=== PATIENT | female | born 1965 | race Caucasian/White ===

== ENCOUNTER 2020-03-12 20:04 | Emergency (ER) | payer OTHER ==
[~2020-03-12] VITALS: Ht 170.2 cm; Wt 69.0 kg
[2020-03-12 20:08] VITALS: BP 125/46
[2020-03-12] MEDS ORDERED: LIDOCAINE 2%, 20ML SQ ONE (20:30)
[2020-03-12] MEDS ORDERED: DIPH,PERTUSS(ACELL),TET VAC/PF 0.5 ML IM-VACC ONE (20:30)
[2020-03-12] MEDS ORDERED: NEOSPORIN OINT. PKT 1 PACKET ONE (21:12)
--- NOTE | 2020-03-12 21:25 | NUR ---
WOUND CARE COMPLETE. DC EDUCATION PROVIDED, PT DEMONSTRATES UNDERSTANDING. PT AMBULATED STEADILY TO DC WITH RN
== END 2020-03-12 21:27 | disposition home or self-care (01) ==
LOC: ED 21:16
DX: S61.012A Laceration without foreign body of left thumb without damage to nail, initial encounter (principal); W26.0XXA Contact with knife, initial encounter; Y93.89 Activity, other specified; Y92.009 Unspecified place in unspecified non-institutional (private) residence as the place of occurrence of the external cause; Y99.8 Other external cause status
CPT/HCPCS: 12001; 12002; 90471; 90715; 99283